=== PATIENT | female | born 1980 | race Caucasian/White ===

== ENCOUNTER 2024-08-16 13:08 | Observation (INO) | payer SELFPAY ==
[~2024-08-16 13:08] MED LIST: Iopamidol-370 76% 500 ML MDV (1 ML CHARGE) ONE
[2024-08-16 13:33] LABS: #Basophils Less than 0.03 10x3/uL (0.0-0.2); %Basophils 0.2 % (0.0-1.0); %Eosinophils 0.3 % (0.0-10.0); %Monocytes 5.2 % (0.0-10.0); %Neutrophils 73.1 % (42.0-75.0); Hematocrit 41.8 % (36.0-47.0); Hemoglobin 14.4 g/dL (12.0-16.0); Mean Corpuscular HGB CONC 34.4 g/dL (32.0-36.0); Mean Corpuscular Hemoglobin 32.5 pg (27.0-31.0); Mean Corpuscular Volume 94.4 fL (78.0-98.0); Mean Platelet Volume 10.6 fL (7.4-10.4); Platelet Count 214 10x3/uL (130-400); RBC Distribution Width 12.7 % (11.5-14.5); Red Blood Cell (RBC) Count 4.43 mill/uL (4.20-5.40)
[2024-08-16 13:52] LABS: ALT (SGPT) 12 U/L (8-55); AST (SGOT) 18 U/L (5-34); Albumin 4.6 g/dL (3.5-5.0); Alkaline Phosphatase 42 U/L (40-110); Anion Gap 14 mmol/L (10-20); BUN (Urea Nitrogen) 14 mg/dL (7.0-18.7); Bilirubin, Total 0.4 mg/dL (0.2-1.2); Calc. Creatinine Clearance 0 mL/min (70-130); Calcium 9.3 mg/dL (7.8-10.44); Carbon Dioxide 22 mmol/L (22-29); Chloride 108 mmol/L (98-107); Estimated GFR 95; Globulin 3.2 g/dL (2.4-3.5); Glucose 122 mg/dL (70-105); Potassium 3.4 mmol/L (3.5-5.1); Protein, Total 7.8 g/dL (6.0-8.3); Sodium 141 mmol/L (136-145)
[2024-08-16 14:02] LABS: Troponin I Less than 0.010 ng/mL (< 0.028)
[2024-08-16] MEDS ORDERED: Lorazepam 2 MG/ML VIAL ONE (14:16)
[2024-08-16] MEDS ORDERED: Aspirin Chewable 81 MG TAB ONE (14:16)
[2024-08-16 14:56] LABS: BHCG - Serum Negative (NEGATIVE); Pregs Control Background? CLEAR/WHITE (CLR/WHITE); Pregs Control Bar Appear? YES (CONTROL BAR)
[2024-08-16 14:57] LABS: Bacteria/HPF None Seen HPF (None Seen); Bilirubin Negative (Negative); Blood, Urine Trace (Negative); CAUTI Indications for Culture Pelvic or flank pain; Clarity Clear (Clear); Glucose, Urine (Dipstick) Normal (Negative); Ketone, Urine Negative (Negative); Leukocyte Negative Leu/uL (Negative); Nitrite Negative (Negative); Protein, Urine (Dipstick) 20 mg/dL (Neg-Trace); Specific Gravity, Urine 1.024 (1.002-1.036); Squamous Epithelial 0-3 HPF (0-3); Urobilinogen Normal mg/dL (Less than 2); WBC/HPF None Seen HPF (0-3); pH, Urine 7.5 (5.0-9.0)
[2024-08-16 14:59] LABS: Urine Culture Reflex No No
[2024-08-16 15:01] LABS: Acetaminophen Less than 10 mcg/mL (Less than 10); Alcohol Less than 10.0 mg/dL (Less than 10); Salicylate Less than 8.0 mg/dL (Less than 8.0)
[2024-08-16 15:10] LABS: Amphetamine Not Detected (NotDetected); Barbiturates Screen Not Detected (NotDetected); Benzodiazepine Screen Detected (NotDetected); Cocaine Metabolite Screen Not Detected (NotDetected); Methadone Not Detected (NotDetected); Methamphetamine Detected (NotDetected); Opiate Screen Not Detected (NotDetected); Oxycodone Screen Not Detected (NotDetected); Phencyclidine (PCP) Not Detected (NotDetected); THC/Cannabinoid Screen Not Detected (NotDetected); Tricyclic Screen Not Detected (NotDetected)
[2024-08-16 18:19] VITALS: BMI 21.9
[2024-08-16] MEDS ORDERED: Nitroglycerin 0.4 MG TAB (25 Tab Bottle) SL PRN (18:19)
[2024-08-16 18:24] LABS: Troponin I Less than 0.010 ng/mL (< 0.028)
[2024-08-16 20:12] LABS: Troponin I Less than 0.010 ng/mL (< 0.028)
[2024-08-16] MEDS: Lorazepam 1 MG TAB PO SCH (20:41)
[2024-08-17] MEDS: Aspirin Chewable 81 MG TAB PO SCH (08:16)
[2024-08-17] MEDS: Ondansetron PF 4 MG/2 ML Vial IVP PRN (08:26)
[2024-08-17] MEDS ORDERED: Regadenoson 0.4 MG/5 ML SYRINGE ONE (10:54)
[2024-08-17 12:36] VITALS: BP 116/79; TEMP 98.2
[2024-08-17] MEDS: Acetaminophen 325 MG (10.15 ML) UDCUP PO PRN (14:08)
== END 2024-08-17 14:45 | disposition home or self-care (01) ==
LOC: ERS 13:08 → ERHOLD 15:21 → OBS 18:18
PROVIDERS: ADMIT Internal Medicine; ATTEND Internal Medicine
DX: R07.89 Other chest pain (principal); I10 Essential (primary) hypertension; F32.A Depression, unspecified; F41.9 Anxiety disorder, unspecified; F43.10 Post-traumatic stress disorder, unspecified; F17.210 Nicotine dependence, cigarettes, uncomplicated; Z90.710 Acquired absence of both cervix and uterus; Z98.51 Tubal ligation status; Z98.890 Other specified postprocedural states; Z79.1 Long term (current) use of non-steroidal anti-inflammatories (NSAID); Z79.899 Other long term (current) drug therapy
CPT/HCPCS: 36415; 71045; 71275; 78452; 80053; 80306; 80307; 81001; 83880; 84443; 84484; 84703; 85025; 93005; 93017; 96374; 96375; A9502; G0378; J2060; J2405; J2785; Q9967